=== PATIENT | female | born 1955 | race Caucasian/White ===

== ENCOUNTER → 2017-08-01 08:08 | Outpatient (CLI) | payer MEDICARE, MEDICAID, SELFPAY ==
--- NOTE | 2017-08-01 08:12 | XR_ITS ---
XR ankle RT min 3V HISTORY: ITS.REASON: Right ankle pain ORDERING PHYSICIAN: RIAZ Owen PATIENT AGE: 62 years FINDINGS: There is an old fracture of the distal shaft of the fibula with good alignment of the fibula. Mild osteoarthritic changes are present at the ankle joint with mild hypertrophic changes of the medial and lateral malleolus. Patchy areas of decreased density are present within the talus and midfoot consistent with osteopenia. IMPRESSION: Old distal fibular fracture with mild arthritic changes of the ankle. No acute finding
--- NOTE | 2017-08-01 08:12 | CT_ITS ---
CT abdomen pelvis wo con CLINICAL INDICATION: ITS.REASON: RENAL STONE PROTOCOL - RIGHT FLANK PAIN, HEMATURIA ORDERING PHYSICIAN: RIAZ Owen PATIENT AGE: 62 years COMPARISON: 08/20/2016 TECHNIQUE: Axial images obtained with sagittal and coronal reformats. All CT scans at the facility use one or more dose reduction, viz: automated exposure control; ma/kV adjustment per patient size (including targeted exams where dose is matched to indication; i.e. head); or iterative reconstruction technique. PROCEDURE: Oral Contrast: None IV Contrast: None . FINDINGS: No acute finding in the lung bases. Mild fatty liver infiltration. Prior cholecystectomy. No ductal dilatation. The spleen, adrenal glands, and pancreas have an unremarkable unenhanced CT appearance. No hydronephrosis or hydroureter. There is a 2 mm nonobstructing stone in the mid polar region of the right kidney and a 4 mm nonobstructing stone in the lower pole the left kidney. There is mild cortical scarring of the left kidney. No evidence of appendicitis, diverticulitis, intestinal obstruction, or free air. Prior hysterectomy. No pelvic mass focal inflammatory change or abnormal fluid collection. No acute bony anomalies IMPRESSION: 1. Nonobstructing bilateral renal calculi. No obstructing renal or ureteral calculi. Mild cortical scarring of the left kidney. 2. Otherwise negative CT abdomen pelvis without contrast
== END ==
PROVIDERS: Family Provider Emergency Medicine; PCP Physician Assistant; Visit Provider Physician Assistant
DX: R10.9 Unspecified abdominal pain (principal); R31.9 Hematuria, unspecified; S99.911A Unspecified injury of right ankle, initial encounter
CPT/HCPCS: 73610; 74176

== ENCOUNTER → 2017-08-16 08:32 | Outpatient (CLI) | payer MEDICARE, MEDICAID, SELFPAY ==
--- NOTE | 2017-08-16 08:34 | XR_ITS ---
XR DEXA axial skeleton HISTORY: ITS.REASON: Osteopenia ORDERING PHYSICIAN: RIAZ Owen PATIENT AGE: 62 years COMPARISON: None FINDINGS: The BMD measured at the right femoral neck is 0.715 g/cm squared with a T score of -2.3. This is considered Osteopenic according to the World Health Organization criteria. Fracture risk is Moderate. Treatment is advised. The L1 L4 density has a T score of -0.7. IMPRESSION: Osteopenia with moderate fracture risk. Treatment recommended. Recommend follow-up exam july 2019
== END ==
PROVIDERS: Family Provider Emergency Medicine; PCP Physician Assistant; Visit Provider Physician Assistant
DX: M85.89 Other specified disorders of bone density and structure, multiple sites (principal)
CPT/HCPCS: 77080

== ENCOUNTER → 2017-08-23 09:49 | Outpatient (CLI) | payer MEDICARE, MEDICAID, SELFPAY ==
[2017-08-23 15:59] LABS: Basophils % 0.1 % (0.1-2.0); Eosinophils # 0.1 K/mm3 (0.0-0.4); Eosinophils % 1.7 % (0.1-12.0); Hematocrit 48.7 % (37.0-47.0); Hemoglobin 15.4 g/dL (12.2-16.2); Lymphocytes # 0.9 K/mm3 (0.7-4.5); Lymphocytes % 11.5 K/mm3 (10-50); Mean Corpuscular HGB Conc 31.5 g/dL (31.8-35.4); Mean Corpuscular Hemoglobin 27.4 pg (27.0-31.2); Mean Corpuscular Volume 86.8 fl (81-99); Mean Platelet Volume 8.4 fl (7.4-10.4); Monocytes # 0.1 K/mm3 (0.1-1.0); Monocytes % 1.5 % (1.7-9.3); Neutrophils # 6.9 K/mm3 (1.8-7.8); Neutrophils % 85.2 % (37.0-80.0); Platelet Count 335 K/mm3 (142-424); Red Blood Count 5.61 M/mm3 (4.20-5.40); Red Cell Distribution Width 13.5 % (11.5-17.5); White Blood Count 8.2 K/mm3 (4.8-10.8)
[2017-08-23 16:15] LABS: MANUAL DIFFERENTIAL MANUAL DIFFERENTIAL (MANUAL DIFF)
[2017-08-23 17:07] LABS: Erythrocyte Sedimentation Rate 81 mm/hr (0-30)
[2017-08-23 17:19] LABS: Lymphocytes % 14 % (10-50); Monocytes % 2 % (2-9); Neutrophils % 84 % (42-76); Platelet Estimate Normal; RBC Morphology Normal; Total Cells Counted 100
[2017-08-23 17:52] LABS: Hemoglobin A1C 6.2 % (0.0-7.0)
[2017-08-23 18:07] LABS: Alanine Aminotransferase 26 U/L (12-78); Albumin Level 3.4 gm/dL (3.4-5.0); Albumin/Globulin Ratio 0.7 (1.1-1.8); Alkaline Phosphatase 127 U/L (46-116); Anion Gap 18.6 mEq/L (5-15); Aspartate Amino Transferase 20 U/L (15-37); Bilirubin,Total 0.3 mg/dL (0.2-1.0); Blood Urea Nitrogen 14 mg/dL (7-18); C-Reactive Protein 9.2 mg/L (0.0-0.9); Calcium 9.1 mg/dL (8.5-10.1); Carbon Dioxide 21 mmol/L (21.0-32.0); Chloride 103 mmol/L (98-107); Chol/HDL Ratio 3.7 (1-3.5); Cholesterol 180 mg/dL (140-200); Estimated Glomerular Filt Rate 50 ml/min (>60); Free T4 (Free Thyroxine) 1.04 ng/dl (0.76-1.46); GFR (African American) 61 ML/MIN (>60); Globulin 4.7 gm/dl (1.3-3.2); Glucose 191 mg/dL (74-106); HDL Cholesterol 49 mg/dL (29-89); LDL Cholesterol 113 mg/dL (0-130); Potassium 4.6 mmoL/L (3.5-5.1); Sodium 138 mmol/L (136-145); Thyroid Stimulating Hormone 0.58 uIU/ml (0.358-3.740); Total Protein,Serum 8.1 gm/dL (6.4-8.2); Triglycerides 90 mg/dL (30-200); VLDL Cholesterol 18 mg/dL (0-40)
[2017-08-25 20:19] LABS: RA Latex Turbid. <10.0 IU/mL (0.0-13.9)
[2017-08-26 13:08] LABS: PTT-LA 51.5 sec (0.0-51.9)
[2017-08-27 05:06] LABS: dRVVT Mix 42.8 sec (0.0-47.0)
[2017-08-27 15:15] LABS: Anti-Jo-1 <0.2 AI (0.0-0.9); Anti-Smith Antibody <0.2 AI (0.0-0.9); Antichromatin Antibodies <0.2 AI (0.0-0.9); Antiscleroderma-70 Antibodies <0.2 AI (0.0-0.9); RNP Antibodies 0.3 AI (0.0-0.9); Sjogren's Anti-SS-A <0.2 AI (0.0-0.9); Sjogren's Anti-SS-B <0.2 AI (0.0-0.9)
[2017-08-27 15:55] LABS: Vitamin D 25 Hydroxy 35.2 ng/mL (30.0-100.0)
[2017-08-27 15:57] LABS: Anti-Centromere B Antibodies <0.2 AI (0.0-0.9); Anti-DNA (DS) Ab Qn 1 IU/mL (0-9)
[2017-08-28 06:38] LABS: Anti-Cyclic Citrullinated Pept 6 units (0-19); Lupus Reflex Interpretation Comment: (.); dRVVT 54.8 sec (0.0-47.0)
== END ==
PROVIDERS: Visit Provider Nurse Practitioner Family
DX: R21 Rash and other nonspecific skin eruption (principal); E16.2 Hypoglycemia, unspecified; R53.83 Other fatigue; Z79.899 Other long term (current) drug therapy
CPT/HCPCS: 36415; 80053; 80061; 82652; 83036; 84439; 84443; 85007; 85025; 85613; 85651; 86038; 86140; 86200; 86431

== ENCOUNTER → 2018-02-03 18:17 | Outpatient (CLI) | payer MEDICARE, MEDICAID, SELFPAY ==
[2018-02-03 18:34] LABS: Basophils % 0.2 % (0.1-2.0); Eosinophils # 0.3 K/mm3 (0.0-0.4); Eosinophils % 2.4 % (0.1-12.0); Hematocrit 46.2 % (37.0-47.0); Lymphocytes % 28.9 K/mm3 (10-50); Mean Corpuscular HGB Conc 32.4 g/dL (31.8-35.4); Mean Corpuscular Volume 86.5 fl (81-99); Mean Platelet Volume 8.9 fl (7.4-10.4); Monocytes # 0.6 K/mm3 (0.1-1.0); Monocytes % 5.7 % (1.7-9.3); Neutrophils # 6.6 K/mm3 (1.8-7.8); Neutrophils % 62.7 % (37.0-80.0); Platelet Count 392 K/mm3 (142-424); Red Blood Count 5.35 M/mm3 (4.20-5.40); Red Cell Distribution Width 13.9 % (11.5-17.5); White Blood Count 10.5 K/mm3 (4.8-10.8)
[2018-02-03 20:05] LABS: Alanine Aminotransferase 22 U/L (12-78); Albumin Level 3.4 gm/dL (3.4-5.0); Albumin/Globulin Ratio 0.8 (1.1-1.8); Alkaline Phosphatase 113 U/L (46-116); Amylase 32 U/L (25-125); Anion Gap 15.6 mEq/L (5-15); Aspartate Amino Transferase 19 U/L (15-37); Bilirubin,Total 0.2 mg/dL (0.2-1.0); Blood Urea Nitrogen 13 mg/dL (7-18); Calcium 8.8 mg/dL (8.5-10.1); Carbon Dioxide 24 mmol/L (21.0-32.0); Chloride 105 mmol/L (98-107); Chol/HDL Ratio 3.4 (1-3.5); Cholesterol 182 mg/dL (140-200); Estimated Glomerular Filt Rate 64 ml/min (>60); GFR (African American) 77 ML/MIN (>60); Globulin 4.3 gm/dl (1.3-3.2); Glucose 87 mg/dL (74-106); HDL Cholesterol 54 mg/dL (29-89); LDL Cholesterol 106 mg/dL (0-130); Lipase 87 u/L (73-393); Potassium 4.6 mmoL/L (3.5-5.1); Sodium 140 mmol/L (136-145); T4 (Thyroxine) 10.8 ug/dl (4.7-13.3); Total Protein,Serum 7.7 gm/dL (6.4-8.2); Triglycerides 112 mg/dL (30-200); VLDL Cholesterol 22 mg/dL (0-40)
[2018-02-05 12:40] LABS: Vitamin D 25 Hydroxy 27.4 ng/mL (30.0-100.0)
== END ==
PROVIDERS: Visit Provider Physician Assistant
DX: I10 Essential (primary) hypertension (principal); R10.13 Epigastric pain; R63.4 Abnormal weight loss
CPT/HCPCS: 80053; 80061; 82150; 82652; 83690; 84436; 84443; 85025

== ENCOUNTER → 2018-02-21 12:36 | Outpatient (CLI) | payer MEDICARE, MEDICAID, SELFPAY ==
[2018-02-21 13:56] LABS: Anion Gap 12.7 mEq/L (5-15); Blood Urea Nitrogen 13 mg/dL (7-18); Carbon Dioxide 27 mmol/L (21.0-32.0); Chloride 104 mmol/L (98-107); Creatinine,Serum 1.03 mg/dL (0.55-1.02); Estimated Glomerular Filt Rate 54 ml/min (>60); GFR (African American) 66 ML/MIN (>60); Potassium 4.7 mmoL/L (3.5-5.1); Sodium 139 mmol/L (136-145)
[2018-02-21 14:25] LABS: Glucose 113 mg/dL (74-106)
== END ==
PROVIDERS: PCP Physician Assistant; Visit Provider Physician Assistant
DX: Z01.818 Encounter for other preprocedural examination (principal)
CPT/HCPCS: 36415; 80048

== ENCOUNTER → 2018-02-24 13:29 | Outpatient (CLI) | payer MEDICARE, MEDICAID, SELFPAY ==
--- NOTE | 2018-02-24 13:34 | CT_ITS ---
CT abdomen pelvis w con CLINICAL INDICATION: Epigastric pain and weight loss ITS.REASON: epigastric pain, weight loss ORDERING PHYSICIAN: RIAZ Owen PATIENT AGE: 62 years COMPARISON: 08/01/2017 TECHNIQUE: Axial images obtained with sagittal and coronal reformats. All CT scans at the facility use one or more dose reduction, viz: automated exposure control, ma/kV adjustment per patient size (including targeted exams where dose is matched to indication, i.e. head), or iterative reconstruction technique. PROCEDURE: Oral Contrast: Redicat IV Contrast: 75 mL's of Isovue 370. FINDINGS: No acute finding in the lung bases. Mild fatty liver infiltration. Prior cholecystectomy. No focal lesion of the liver evident. The spleen, adrenal glands, pancreas, and kidneys have an unremarkable appearance other than a small 3 mm nonobstructing stone in the lower pole the left kidney. No obstructing renal or ureteral calculi. No lymphadenopathy. No intestinal obstruction or free air. No evidence of appendicitis or diverticulitis. There has been prior hysterectomy. No pelvic mass or abnormal fluid collection or focal inflammatory changes in the pelvis. No acute bony anomalies. IMPRESSION: 1. No acute finding. No significant change from 08/01/2017. 2. Nonobstructing left renal calculus
== END ==
PROVIDERS: PCP Physician Assistant; Visit Provider Physician Assistant
DX: R10.13 Epigastric pain (principal); R63.4 Abnormal weight loss
CPT/HCPCS: 74177; Q9967

== ENCOUNTER → 2018-11-24 17:13 | Outpatient (CLI) | payer MEDICARE, MEDICAID, SELFPAY ==
[2018-11-24 18:45] LABS: Basophils % 0.3 % (0.1-2.0); Eosinophils # 0.2 K/mm3 (0.0-0.4); Eosinophils % 2.5 % (0.1-12.0); Hematocrit 47.4 % (37.0-47.0); Hemoglobin 15.4 g/dL (12.2-16.2); Lymphocytes # 2.8 K/mm3 (0.7-4.5); Lymphocytes % 32.5 % (10-50); Mean Corpuscular HGB Conc 32.5 g/dL (31.8-35.4); Mean Corpuscular Hemoglobin 29.2 pg (27.0-31.2); Mean Corpuscular Volume 89.9 fl (81-99); Mean Platelet Volume 9.3 fl (7.4-10.4); Monocytes # 0.4 K/mm3 (0.1-1.0); Monocytes % 5.1 % (1.7-9.3); Neutrophils # 5.1 K/mm3 (1.8-7.8); Neutrophils % 59.6 % (37.0-80.0); Platelet Count 404 K/mm3 (142-424); Red Blood Count 5.27 M/mm3 (4.20-5.40); Red Cell Distribution Width 13.7 % (11.5-17.5); White Blood Count 8.5 K/mm3 (4.8-10.8)
[2018-11-24 19:56] LABS: Alanine Aminotransferase 23 U/L (12-78); Albumin Level 3.4 gm/dL (3.4-5.0); Albumin/Globulin Ratio 0.8 (1.1-1.8); Alkaline Phosphatase 109 U/L (46-116); Anion Gap 16.4 mEq/L (5-15); Aspartate Amino Transferase 14 U/L (15-37); Bilirubin,Total 0.3 mg/dL (0.2-1.0); Blood Urea Nitrogen 14 mg/dL (7-18); Calcium 9.1 mg/dL (8.5-10.1); Carbon Dioxide 23 mmol/L (21.0-32.0); Chloride 103 mmol/L (98-107); Chol/HDL Ratio 3.6 (1-3.5); Cholesterol 185 mg/dL (140-200); Creatinine,Serum 1.04 mg/dL (0.55-1.02); Estimated Glomerular Filt Rate 54 ml/min (>60); GFR (African American) 65 ML/MIN (>60); Globulin 4.4 gm/dl (1.3-3.2); Glucose 194 mg/dL (74-106); HDL Cholesterol 52 mg/dL (29-89); LDL Cholesterol 110 mg/dL (0-130); Potassium 4.4 mmoL/L (3.5-5.1); Sodium 138 mmol/L (136-145); Thyroid Stimulating Hormone 1.06 uIU/ml (0.358-3.740); Total Protein,Serum 7.8 gm/dL (6.4-8.2); Triglycerides 115 mg/dL (30-200); VLDL Cholesterol 23 mg/dL (0-40)
[2018-11-24 20:47] LABS: Hemoglobin A1C 6.3 % (0.0-7.0)
[2018-11-26 09:48] LABS: FSH 22.4 mIU/mL (.); LH 13.7 mIU/mL (.); Progesterone <0.1 ng/mL (.)
[2018-11-29 22:24] LABS: Estrogen 82 pg/mL (.)
== END ==
PROVIDERS: Visit Provider Physician Assistant
DX: I10 Essential (primary) hypertension (principal); E55.9 Vitamin D deficiency, unspecified; R73.9 Hyperglycemia, unspecified
CPT/HCPCS: 80053; 80061; 82652; 82672; 83001; 83002; 83036; 84144; 84436; 84443; 85025

== ENCOUNTER → 2021-02-08 08:17 | Outpatient (CLI) | payer MEDICARE, MEDICAID, SELFPAY ==
[2021-02-08 08:37] LABS: Basophils # 0.1 K/mm3 (0-0.2); Basophils % 0.9 % (0.1-2.0); Eosinophils # 0.3 K/mm3 (0.0-0.4); Eosinophils % 2.9 % (0.1-12.0); Lymphocytes # 2.5 K/mm3 (0.7-4.5); Lymphocytes % 27.1 % (10-50); Mean Corpuscular Hemoglobin 29.1 pg (27.0-31.2); Mean Platelet Volume 9.3 fl (7.4-10.4); Monocytes # 0.3 K/mm3 (0.1-1.0); Monocytes % 3.6 % (1.7-9.3); Neutrophils # 6.1 K/mm3 (1.8-7.8); Neutrophils % 65.4 % (37.0-80.0); Platelet Count 439 K/mm3 (142-424); Red Blood Count 5.16 M/mm3 (4.20-5.40); Red Cell Distribution Width 14.1 % (11.5-17.5); White Blood Count 9.3 K/mm3 (4.8-10.8)
[2021-02-08 09:33] LABS: Alanine Aminotransferase 21 U/L (12-78); Albumin/Globulin Ratio 1.2 (1.1-1.8); Alkaline Phosphatase 135 U/L (38-126); Anion Gap 11.6 mEq/L (5-15); Aspartate Amino Transferase 26 U/L (14-36); Bilirubin,Total 0.5 mg/dl (0.2-1.3); Blood Urea Nitrogen 15 mg/dl (7-17); Calcium 9.3 mg/dl (8.4-10.2); Carbon Dioxide 28 mmol/L (22.0-30.0); Chloride 105 mmol/L (98-107); Chol/HDL Ratio 3.5 (1-3.5); Cholesterol 195 mg/dl (140-200); Estimated Glomerular Filt Rate 63 ml/min (>60); GFR (African American) 76 ML/MIN (>60); Globulin 3.4 g/dL (1.3-3.2); Glucose 141 mg/dl (74-100); HDL Cholesterol 56 mg/dl (40-60); Potassium 4.6 mmoL/L (3.5-5.1); Sodium 140 mmol/L (136-145); Total Protein,Serum 7.4 g/dl (6.3-8.2); Triglycerides 118 mg/dl (30-150); VLDL Cholesterol 24 mg/dL (0-40)
[2021-02-08 09:44] LABS: Direct LDL Cholesterol 118.46 mg/dL (100-129)
[2021-02-08 09:50] LABS: 25-OH Vitamin D, Total 37.6 ng/mL (30-100)
[2021-02-08 10:04] LABS: Thyroid Stimulating Hormone 1.19 uIU/mL (0.465-4.68)
[2021-02-08 13:25] LABS: Hemoglobin A1C 6.7 % (4.0-6.0)
== END ==
PROVIDERS: Family Medicine; Visit Provider Physician Assistant
DX: I10 Essential (primary) hypertension (principal); E55.9 Vitamin D deficiency, unspecified; F32.9 Major depressive disorder, single episode, unspecified; F41.9 Anxiety disorder, unspecified; R73.09 Other abnormal glucose
CPT/HCPCS: 36415; 80053; 80061; 82306; 83036; 84443; 85025

== ENCOUNTER → 2021-03-06 12:36 | Outpatient (CLI) | payer MEDICARE, MEDICAID, SELFPAY ==
--- NOTE | 2021-03-06 12:37 | CA_ITS ---
APPROVED REPORT EXAM: Comprehensive 2D, Doppler, and color-flow Echocardiogram Security Operations Analyst: MICHEAL Champion, RVS Ht: 5 ft 4 in Wt: 249lbs BSA: 2.15 BP: 129/82 mmHg Indications: SOA, CP, Family Hx-HD, HTN, HLD, DM, Obesity Echo Enhancing Agent Comments: Techgnically limited due to extreme body habitus. 2D Dimensions Aortic Root 2.71 cm LA Volume 37.50 mL Left Atrium 3.55 cm LA Volume Index 17.40 mL/m2 (M/F) 16-34 LVOT 1.66 cm (M/F) 1.5-2.5 M-Mode Dimensions RVDd 2.99 cm (0.9-2.6) LA Diam 3.48 cm (1.9-4.0) LVDd 4.99 cm (3.5-5.7) Ao Diam 2.91 cm (2.0-3.7) LVDs 4.20 cm (3.5-5.7) IVSd 0.96 cm (0.6-1.1) PWd 0.96 cm (0.6-1.1) EF (Teich) 43.40% EPSs 0.25 cm FS 21.60% EDV (Teich) 138.90 mL TAPSE 1.79 (<1.7) ESV (Teich) 78.60 mL LV Diastology E Decel Time 230.00 (160-240 msec) E/A Ratio 1.00 MED E' 5.70 (< 7 cm/sec) MED A' 8.10 cm/s E'/MED E' Ratio 13.58 (>14) LAT E' 5.20 (<10 cm/sec) LAT A' 6.50 cm/s E/LAT E' Ratio 14.88 (>14) Pulm Vein s 33.00 cm/sec Pulm Vein d 25.00 cm/sec Ar-A Duration 103.00 msec Aortic Valve LVOT Max 88.00 (70-110 cm/s) LVOT VTI 19.73 cm AoV Peak Jose. 136.00 (50-130 cm/s) AO Peak GR. 7.40 mmHg AO Mean GR. 3.70 (<5 mmHg) AO VTI 25.61 (18-25 cm) NILSON (VTI) 1.67 (2.5-4.5 cm2) Mitral Valve MV A Velocity 77.00 (40-130 cm/s) E/A Ratio 1.00 MV Decel. Time 230.00 (160-240 ms) MV Mean Gr. 1.50 (<2mmHg) Pulmonary Valve PV Peak Velocity 81.00 (50-150 cm/s) Left Ventricle Left atrium is mildly enlarged, left ventricle is normal size, mild concentric left ventricular hypertrophy, visually estimated ejection fraction 50% with no obvious regional wall motion abnormality, diastolic parameters are inconclusive in the study. Right Ventricle Right atrium and right ventricle are qualitatively mildly enlarged with normal contractility. Aortic Valve Aortic valve is minimally thickened and fibrosed, there is no aortic stenosis or aortic insufficiency. Mitral Valve Mitral valve is grossly normal, there is trace mitral regurgitation. Tricuspid Valve Tricuspid grossly normal, there is trace tricuspid regurgitation. Tricuspid regurgitation jet velocity is inadequate for calculation of the right ventricular systolic pressure. Pulmonic Valve Pulmonic valve is poorly visualized. Great Vessels Aortic root is normal size. Inferior vena cava is poorly visualized. Pericardium No significant pericardial effusion noted. Conclusion 1. Technically difficult study because of the patient factors and poor acoustic windows. 2. Mild biatrial enlargement, normal left ventricular size, mild concentric left ventricular hypertrophy, visually estimated ejection fraction 50% with no regional wall motion abnormality, diastolic parameters are inconclusive. 3. Mildly enlarged right ventricle with normal contractility. 4. Trace mitral and tricuspid regurgitation. 5. No significant pericardial effusion noted. 6. Inferior vena cava is poorly visualized. Electronically signed by : Sarthak Rendon MD 03/06/2021 21:44:39
== END ==
PROVIDERS: PCP Physician Assistant; Visit Provider Physician Assistant
DX: R06.00 Dyspnea, unspecified (principal)
CPT/HCPCS: 93306

== ENCOUNTER → 2021-03-15 12:41 | Outpatient (CLI) | payer MEDICARE, MEDICAID, SELFPAY | PROVIDERS: PCP Physician Assistant; Visit Provider Physician Assistant | DX: G47.33 Obstructive sleep apnea (adult) (pediatric) (principal); R06.83 Snoring; R53.83 Other fatigue | CPT/HCPCS: G0399 ==

== ENCOUNTER → 2021-03-23 14:11 | Outpatient (CLI) | payer MEDICARE, MEDICAID, SELFPAY ==
--- NOTE | 2021-03-23 14:12 | CT_ITS ---
PROCEDURE: CT HEAD/BRAIN WO CON CLINICAL INDICATION: vertigo, off balance COMPARISON: No exams were available for comparison TECHNIQUE: Axial images obtained. All CT scans at the facility use one or more dose reduction, viz: automated exposure control, ma/kV adjustment per patient size (including targeted exams where dose is matched to indication, i.e. head), or iterative reconstruction technique. FINDINGS: No midline shift, mass effect, intracranial hemorrhage, hydrocephalus, or extra-axial fluid collection is evident. The calvarium has an unremarkable appearance. No mastoid effusion. No sinus air-fluid level. IMPRESSION: No acute intracranial finding Dictated by: Luis Moy MD 03/23/2021 15:07 Luis Moy MD in [place] 03/23/2021 15:07
== END ==
PROVIDERS: PCP Physician Assistant; Visit Provider Physician Assistant
DX: R42 Dizziness and giddiness (principal)
CPT/HCPCS: 70450

== ENCOUNTER → 2021-04-12 15:46 | Outpatient (CLI) | payer MEDICARE, MEDICAID, SELFPAY | PROVIDERS: PCP Physician Assistant; Visit Provider Specialist | DX: G47.13 Recurrent hypersomnia (principal) | CPT/HCPCS: 36415 ==

== ENCOUNTER → 2021-04-14 11:13 | Outpatient (CLI) | payer MEDICARE, MEDICAID, SELFPAY ==
--- NOTE | 2021-04-14 | CA_ITS ---
APPROVED REPORT Exam: Pharmacologic Technologist: Romy Sanchez, Ht: 5 ft 4 in Wt: 246 lbs BSA: 2.14 m2 HR: 64 bpm BP: 115/66 mmHg Rhythm: NSR Medical History Medical History: HTN Medications: Omeprazole,,,,, Clonidine,,,,, Aspirin,,,,, Metoprolol,,,,, Vitamin D3,,,,, Albuterol,,,,, MeLOXICAM,,,,, Valium,,,,, Fluoxetine,,,,, Vitamin D2,,,,, Pregabalin,,,,, CyclobenAPRINE,,,,, Cardiac Risk Factors: HTN Stress Test Details Test: LEXISCAN HR Resting HR: 69 bpm Max Heart Rate (APMHR): 156.158257 bpm Max HR Achieved: 94 bpm Target HR (85% APMHR): 132.923291 bpm % of APMHR: 60.26 Recovery HR: 64 bpm BP Resting BP: 115/66 mmHg Max BP: 119/59 mmHg Recovery BP: 115.0/66.0 mmHg ECG Resting ECG: NSR Clinical Reason for Termination: Completed Protocol Exercise duration: 04:01 min Highest Stage Achieved: Exercise capacity: 1.0 METs Stress ECG Conclusion During lexiscan pt experinced no symptoms, no arrhythmias noted, <1.5mm ST segment depression. Non diagnostic Test Summary REST 01:43 . . 69 . 115/ 66 . . Stage 1 01:00 . . 87 . . . . Stage 2 01:00 . . 87 . 119/ 59 . . Stage 3 01:00 . . 83 . . . . Stage 4 01:00 . . 80 . 113/ 64 . . Stage 4 01:01 . . 80 . 113/ 64 . Stop exercise at 04:01 RECOVERY 01:00 . . 76 . . . . RECOVERY 01:24 . . 76 . 108/ 67 . . Electronically signed by : Sarthak Rendon MD 04/14/2021 15:11:29
--- NOTE | 2021-04-14 11:19 | NM_ITS ---
APPROVED REPORT Exam: Nuclear Stress Test Indication: OBESITY, HTN, D.M., FM HX, C.P., SOB, SYNCOPE, ABN EKG Patient Location: Outpatient Stress Tech: Romy Sanchez [place] Tech:Coby Chavez, ARRT RT (R)(N)(M) Ht: 5 ft 4 in Wt: 250 lbs Bra Size: H HR: 64 bpm BP: 115/66 mmHg BSA: 2.15 m2 BMI: 42.9 History: OBESITY, HTN, D.M., FM HX, C.P., SOB, SYNCOPE, ABN EKG Procedure: Patient received a 0.4 mg of intravenous Lexiscan, resting heart rate 64 bpm, resting blood pressure 115/66 mmHg, with Lexiscan maximum heart rate achived was 88 bpm which is Less than 85 less than 85 % of the maximum predicted heart rate and blood pressure was 119/59 mmHg. With Lexiscan, patient denied any complaint of chest pain. Electrocardiogram Resting electrocardiogram showed sinus rhythm, with Lexiscan there is less than 1.[address] segment depression noted from the baseline EKG. The EKG portion of the Lexiscan is nondiagnostic. Cardiac Stress and Resting SPECT Images: Cardiac Stress and Resting SPECT images were obtained using technetium 99m Myoview 31.2 mCi stress and 9.78 mCi at rest. Gated SPECT for analysis of segmental wall motion and calculation of the ejection fraction also done. Prone images were also obtained. Cardiac stress and resting SPECT images show uniform myocardial activity without segmental perfusion abnormality, computer derived ejection fraction is 64% with no regional wall motion abnormality, right ventricle is normal size and contractility. Conclusion: 1. The EKG portion of the Lexiscan is nondiagnostic. 2. No scintigraphic evidence of reversible ischemia seen, computer derived ejection fraction is 64% with no regional wall motion abnormality, right ventricle is normal size and contractility. 3. Normal Lexiscan Myoview study. Electronically signed by : Sarthak Rendon MD 04/17/2021 17:34:03
== END ==
PROVIDERS: PCP Physician Assistant; Visit Provider Nurse Practitioner Family
DX: R06.00 Dyspnea, unspecified (principal); R07.9 Chest pain, unspecified; R94.31 Abnormal electrocardiogram [ECG] [EKG]
CPT/HCPCS: 78452; 93017; A9502; J2785

== ENCOUNTER → 2021-04-20 13:29 | Outpatient (CLI) | payer MEDICARE, MEDICAID, SELFPAY | PROVIDERS: PCP Physician Assistant; Visit Provider Urology | DX: R06.00 Dyspnea, unspecified (principal); R42 Dizziness and giddiness; R55 Syncope and collapse; R93.1 Abnormal findings on diagnostic imaging of heart and coronary circulation | CPT/HCPCS: 93225 ==

== ENCOUNTER → 2021-04-24 12:52 | Outpatient (CLI) | payer MEDICARE, MEDICAID, SELFPAY ==
--- NOTE | 2021-04-24 12:53 | CA_ITS ---
FINAL REPORT TECHNIQUE: Color Doppler, duplex Doppler and acosta scale sonography of the bilateral neck arterial vasculature was performed. Velocities were measured in the carotid arteries. Stenosis evaluation based on the validated velocity criteria. CLINICAL HISTORY: DIZZINESS,SYNCOPE,DM FINDINGS: The peak systolic velocity of the right common carotid artery is 83 cm/s. The peak systolic velocity of the right internal carotid artery is 56 cm/s and end diastolic velocity of 23 cm/s. The ICA/CCA ratio is 0.91. A minimal amount of plaque is present. The right external carotid artery is patent. The right vertebral artery is patent with antegrade flow. The peak systolic velocity of the left common carotid artery is 93 cm/s. The peak systolic velocity of the left internal carotid artery is 94 cm/s and end diastolic velocity 39 cm/s. The ICA/CCA ratio is 1.35. A minimal amount of plaque is present. The left external carotid artery is patent.The left vertebral artery is patent with antegrade flow. IMPRESSION: No evidence of bilateral carotid stenosis. Bilateral patent vertebral arteries with antegrade flow. Reviewed, Interpreted and Dictated by Demetrius Leija MD Transcribed by Daniela Denton Authenticated by Demetrius Leija MD on 04/24/2021 03:39:24 PM [facility]
== END ==
PROVIDERS: PCP Physician Assistant; Visit Provider Urology
DX: R42 Dizziness and giddiness (principal); R55 Syncope and collapse
CPT/HCPCS: 93880

== ENCOUNTER → 2021-07-03 13:43 | Outpatient (CLI) | payer MEDICARE, MEDICAID, SELFPAY ==
--- NOTE | 2021-07-03 13:51 | MR_ITS ---
FINAL REPORT CLINICAL HISTORY: headache, eye pain, vertigo, falling. headache x6wks every day. dizizness and blurred vision. no injury or trauma. FINDINGS: Multiplanar MR imaging of the brain was performed without contrast. There is mild age-appropriate atrophy. There are scattered foci of increased T2 signal in the cerebral white matter that have a nonspecific appearance but likely represent mild chronic ischemic/gliotic changes. There is no evidence of intracranial hemorrhage or mass. No abnormal ventricular dilatation is identified. No abnormal extra-axial fluid collection is seen. No abnormality is seen on the diffusion weighted images. The posterior fossa and brainstem are unremarkable. Normal major vessel vascular flow voids are seen. IMPRESSION: Age-appropriate atrophy and mild chronic ischemic/gliotic changes. No acute intracranial abnormality. Reviewed, Interpreted and Dictated by Shimon Corado III, MD Transcribed by Cuca Barros Authenticated by Shimon Corado III, MD on 07/03/2021 03:07:19 PM [facility]
--- NOTE | 2021-07-03 13:51 | MR_ITS ---
FINAL REPORT CLINICAL HISTORY: nubmness, headache, eye pain, facial numbness. headache x6wks every day. dizziness and blurred vision. no injury or trauma. FINDINGS: Multiple projection images of the brain arterial vasculature were obtained without contrast. The raw data images were also reviewed. The distal internal carotid, distal vertebral and basilar arteries have an unremarkable appearance without evidence of significant stenosis or occlusion. The proximal anterior, middle and posterior cerebral arteries have an unremarkable appearance. There is no evidence of significant stenosis or major branch occlusion. No aneurysm or vascular malformation is identified. IMPRESSION: Unremarkable MR angiogram of the head. Reviewed, Interpreted and Dictated by Shimon Corado III, MD Transcribed by Cuca Barros Authenticated by Shimon Corado III, MD on 07/03/2021 03:07:24 PM [facility]
== END ==
PROVIDERS: PCP Physician Assistant; Visit Provider Physician Assistant
DX: H57.10 Ocular pain, unspecified eye (principal); R20.0 Anesthesia of skin; R51.9 Headache, unspecified; R20.2 Paresthesia of skin
CPT/HCPCS: 70544; 70551

== ENCOUNTER → 2022-03-12 14:44 | Outpatient (CLI) | payer MEDICARE, MEDICAID, SELFPAY ==
[2022-03-12 14:47] LABS: Amphetamine/Metha Screen,Urine Negative ng/ml (<1000); Barbiturates Screen,Urine Negative ng/ml (<200)
[2022-03-12 14:48] LABS: Benzodiazepines Screen,Urine Positive ng/ml (<200)
[2022-03-12 14:49] LABS: Cannabinoid Screen,Urine Negative ng/ml (<50); Cocaine Screen,Urine Negative ng/ml (<300)
[2022-03-12 14:50] LABS: Methadone Screen,Urine Negative ng/ml (<300); Opiate Screen,Urine Negative ng/ml (<300)
[2022-03-12 14:51] LABS: Phencyclidine Screen,Urine Negative ng/ml (<25)
== END ==
PROVIDERS: PCP Physician Assistant; Visit Provider Physician Assistant
DX: Z79.899 Other long term (current) drug therapy (principal)
CPT/HCPCS: 80305